=== PATIENT | female | born 1960 | race Caucasian/White ===

== ENCOUNTER → 2016-07-26 | Outpatient (CLI) | payer OTHER | LOC: HEART 5 08:36 | DX: R61 Generalized hyperhidrosis (principal); R06.00 Dyspnea, unspecified; R53.83 Other fatigue; I10 Essential (primary) hypertension; J44.9 Chronic obstructive pulmonary disease, unspecified | CPT/HCPCS: 78452; 93306; A9502; J2785 ==

== ENCOUNTER → 2016-07-29 | Outpatient (CLI) | payer OTHER | LOC: MAMO 07-19 11:00 | DX: Z12.31 Encounter for screening mammogram for malignant neoplasm of breast (principal) | CPT/HCPCS: G0202 ==

== ENCOUNTER → 2016-08-09 | Outpatient (CLI) | payer OTHER | LOC: MAMO 14:55 | DX: R92.8 Other abnormal and inconclusive findings on diagnostic imaging of breast (principal) | CPT/HCPCS: G0206 ==

== ENCOUNTER → 2020-05-07 | Outpatient (CLI) | payer OTHER ==
[~2020-05-07] MED LIST: AUGMENTIN 875-1 EACH PO; DOXYCYCLINE HY100 MG PO; IPRAT-ALBUT 0.5-3 ML INH; NICOTINE PATCH1 EAC2 TOP; PREDNISONE 20 M20 MG PO; PROVENTIL HFA6.7 GM INH; SPIRIVA HANDIH18 MCG INH; SYMBICORT 160-1 INHA INH; TAMIFLU 75 MG C75 MG PO
== END ==
LOC: KOH-I 13:02
DX: R91.8 Other nonspecific abnormal finding of lung field (principal)
CPT/HCPCS: 71250

== ENCOUNTER 2020-11-07 00:29 | Emergency (ER) | payer OTHER ==
[2020-11-07 01:34] LABS: RED BLOOD COUNT 4.83 M/UL (4.00-5.10); WHITE BLOOD COUNT 14.1 K/UL (4.5-11.0)
[2020-11-07 02:01] LABS: BUN/CREATININE RATIO 12 (0-10)
[2020-11-07] MEDS ORDERED: PROVENTIL HFA6.7 GM INH (05:17)
[2020-11-07] MEDS ORDERED: TESSALON PERLE100 MG PO (05:17)
== END 2020-11-07 05:31 | disposition home or self-care (01) ==
LOC: ER1 00:29
PROVIDERS: Physician Assistant
DX: U07.1 COVID-19 (principal); J44.9 Chronic obstructive pulmonary disease, unspecified; F17.210 Nicotine dependence, cigarettes, uncomplicated; Z90.710 Acquired absence of both cervix and uterus
CPT/HCPCS: 71045; 80053; 82550; 82553; 83874; 83880; 84484; 85025; 85379; 85610; 85730; 93005; 94640; 94664; 96374; 99285; J2930; Q9967; U0002

== ENCOUNTER 2020-11-08 22:55 | Emergency (ER) | payer OTHER ==
[~2020-11-08 22:55] MED LIST changes: +TESSALON PERLE100 MG PO
[2020-11-09] LABS: HEMOGLOBIN 14.5 gm/dl (12.3-15.3); RED BLOOD COUNT 5.01 M/UL (4.00-5.10); WHITE BLOOD COUNT 11.2 K/UL (4.5-11.0)
[2020-11-09] MEDS ORDERED: PREDNISONE20 MG PO (02:40)
== END 2020-11-09 02:54 | disposition home or self-care (01) ==
LOC: ER1 22:55
PROVIDERS: Family Medicine
DX: U07.1 COVID-19 (principal); J44.1 Chronic obstructive pulmonary disease with (acute) exacerbation; R03.0 Elevated blood-pressure reading, without diagnosis of hypertension; F17.200 Nicotine dependence, unspecified, uncomplicated; Z90.710 Acquired absence of both cervix and uterus; Z23 Encounter for immunization
CPT/HCPCS: 71045; 80048; 82550; 82553; 83605; 83874; 84484; 85025; 93005; 94664; 96374; 99285; J2930; M0243

== ENCOUNTER 2020-11-20 21:34 | Inpatient (IN) | payer OTHER ==
[~2020-11-20] VITALS: Ht 165.1 cm; Wt 87.8 kg
[~2020-11-20 21:34] MED LIST changes: +PREDNISONE20 MG PO
[2020-11-20 22:15] LABS: HEMOGLOBIN 13.9 gm/dl (12.3-15.3); RED BLOOD COUNT 4.78 M/UL (4.00-5.10); WHITE BLOOD COUNT 13.8 K/UL (4.5-11.0)
[2020-11-20 22:39] LABS: BUN/CREATININE RATIO 12 (0-10)
[2020-11-21] MEDS ORDERED: PAROXETINE HCL30 MG PO (05:30)
[2020-11-21 08:28] LABS: HEMOGLOBIN 13.6 gm/dl (12.3-15.3); RED BLOOD COUNT 4.71 M/UL (4.00-5.10); WHITE BLOOD COUNT 10.4 K/UL (4.5-11.0)
[2020-11-21 08:54] LABS: BUN/CREATININE RATIO 14 (0-10)
[2020-11-22 03:24] LABS: HEMOGLOBIN 13.6 gm/dl (12.3-15.3); RED BLOOD COUNT 4.78 M/UL (4.00-5.10)
[2020-11-22 03:28] LABS: WHITE BLOOD COUNT 14.3 K/UL (4.5-11.0)
[2020-11-22 03:47] LABS: BUN/CREATININE RATIO 26 (0-10)
[2020-11-23 03:13] LABS: HEMOGLOBIN 13.7 gm/dl (12.3-15.3); RED BLOOD COUNT 4.77 M/UL (4.00-5.10)
[2020-11-23 04:07] LABS: BUN/CREATININE RATIO 29 (0-10)
--- NOTE | 2020-11-23 12:14 | NUR ---
PTS OXYGEN SAT IS 87% ON ROOM AIR WHILE AMBULATING
[2020-11-23] MEDS ORDERED: ELIQUIS 5 MG TAB5 MG PO (15:38)
[2020-11-23] MEDS ORDERED: AUGMENTIN 875-1 EACH PO (15:38)
[2020-11-23] MEDS ORDERED: SPIRIVA HANDIH18 MCG INH (15:38)
[2020-11-23] MEDS ORDERED: PREDNISONE10 MG PO (15:49)
[2020-11-25 18:09] LABS: ORGANISM ID Not indicated. (.); SPECIMEN SOURCE Urine (.); STREPTOCOCCUS PNEUMONIAE AG Negative (Negative)
== END 2020-11-23 17:34 | disposition home or self-care (01) | DRG 175 ==
LOC: ER1 21:34 → PROG CARE 23:57 → CDU 23:57 → PROG CARE 11-21 06:01
PROVIDERS: Internal Medicine; Preventive Medicine Occupational Medicine; ADMIT Internal Medicine
PROC: 3E0333Z Introduction of Anti-inflammatory into Peripheral Vein, Percutaneous Approach (ICD-10-PCS; principal; 2020-11-20)
DX: I26.99 Other pulmonary embolism without acute cor pulmonale (principal); J96.21 Acute and chronic respiratory failure with hypoxia; J96.22 Acute and chronic respiratory failure with hypercapnia; U07.1 COVID-19; J12.82 Pneumonia due to coronavirus disease 2019; J44.0 Chronic obstructive pulmonary disease with (acute) lower respiratory infection; J44.1 Chronic obstructive pulmonary disease with (acute) exacerbation; U09.9 Post COVID-19 condition, unspecified; E66.9 Obesity, unspecified; I25.10 Atherosclerotic heart disease of native coronary artery without angina pectoris; F41.9 Anxiety disorder, unspecified; F17.210 Nicotine dependence, cigarettes, uncomplicated; F32.9 Major depressive disorder, single episode, unspecified; Z68.30 Body mass index [BMI] 30.0-30.9, adult; Z90.710 Acquired absence of both cervix and uterus; Z98.51 Tubal ligation status; Z82.49 Family history of ischemic heart disease and other diseases of the circulatory system; Z83.3 Family history of diabetes mellitus; Z79.01 Long term (current) use of anticoagulants
CPT/HCPCS: 36415; 36600; 71045; 80048; 80053; 81001; 82550; 82553; 82728; 82803; 83036; 83605; 83615; 83690; 83735; 83874; 83880; 84100; 84484; 85025; 85027; 85610; 85652; 85730; 86140; 87040; 87081; 87086; 87278; 87899; 93005; 94640; 94660; 94760; 96374; 96375; 99285; C9113; J0360; J0696; J1100; J1644; J2543; J2920; J2930; J7030; Q9967; U0002

== ENCOUNTER 2021-01-29 23:20 | Emergency (ER) | payer OTHER ==
[~2021-01-29 23:20] MED LIST changes: +ELIQUIS 5 MG TAB5 MG PO; +PAROXETINE HCL30 MG PO; +PREDNISONE10 MG PO
[2021-01-30 01:05] LABS: HEMOGLOBIN 13.8 gm/dl (12.3-15.3); RED BLOOD COUNT 4.71 M/UL (4.00-5.10); WHITE BLOOD COUNT 8.5 K/UL (4.5-11.0)
[2021-01-30 01:27] LABS: BUN/CREATININE RATIO 11 (0-10)
== END 2021-01-30 04:22 | disposition left against medical advice (07) ==
LOC: ER1 23:20
PROVIDERS: Physician Assistant
DX: I10 Essential (primary) hypertension (principal); R51.9 Headache, unspecified; J44.9 Chronic obstructive pulmonary disease, unspecified; F17.210 Nicotine dependence, cigarettes, uncomplicated
CPT/HCPCS: 70450; 71045; 80053; 82550; 82553; 83874; 83880; 84484; 85025; 85610; 85730; 99284